=== PATIENT | female | born 1980 | race Caucasian/White ===

== ENCOUNTER 2018-04-26 18:07 | Inpatient (IN) | payer BC ==
[2018-04-26] MEDS ORDERED: Penicillin G Potassium 5 MILL.UNITS VIAL ONE (18:41)
[2018-04-26] MEDS ORDERED: Ondansetron PF 4 MG/2 ML Vial IVP PRN (18:46)
[2018-04-26] MEDS ORDERED: Misoprostol 200 MCG TAB PR PRN (18:46)
[2018-04-26] MEDS ORDERED: Lidocaine 1% (PF) 30 ML VIAL SC PRN (18:46)
[2018-04-26] MEDS ORDERED: Carboprost 250 MCG/ML AMP IM PRN (18:46)
[2018-04-26] MEDS ORDERED: Acetaminophen 500 MG TAB PO PRN (18:46)
[2018-04-26] MEDS ORDERED: Promethazine HCl 25 MG/ML VIAL IM PRN (18:46)
[2018-04-26] MEDS ORDERED: HYDROcodone/Acetaminophen 5/325 mg Tablet PO PRN ×2 (18:46→22:44)
[2018-04-26] MEDS ORDERED: Methylergonovine 0.2 MG/ML VIAL IM PRN (18:46)
[2018-04-26] MEDS ORDERED: NS / Oxytocin 40 units/1000ml 1,000 ML IV PRN (18:46)
[2018-04-26] MEDS ORDERED: Penicillin G 2.5 MILL.units 2.5 MILL.UNITS in Premix Bag 1 BAG IVPB SCH (19:00)
[2018-04-26] MEDS ORDERED: Penicillin G Potassium 5 MILL.UNITS in Sodium Chloride 0.9% 100 ML IVPB SCH (19:00)
[2018-04-26 19:04] VITALS: BMI 24.7
[2018-04-26 19:14] LABS: Hemoglobin 12.9 g/dL (12.0-16.0); Mean Corpuscular HGB CONC 30.7 g/dL (32.0-36.0); Mean Corpuscular Hemoglobin 28.5 pg (27.0-31.0); Mean Corpuscular Volume 93.1 fL (78.0-98.0); Mean Platelet Volume 9.6 fL (7.4-10.4); Platelet Count 208 thou/uL (130-400); Red Blood Cell (RBC) Count 4.54 mill/uL (4.20-5.40); White Blood Cell (WBC) Count 12.5 thou/uL (4.8-10.8)
[2018-04-26 19:55] LABS: HBSAg Index 0.31 S/CO (0-0.99); Hep B Surf Ag Non-Reactive S/CO (NonReactive); Syphilis Antibody Nonreactive (Nonreactive); Syphilis Antibody Index 0.06 S/CO (<1.00 Non-Reactive)
[2018-04-26 20:42] LABS: Actual Bicarbonate (HCO3a) 26.1 mEq/L (22-28); Base Excess (BEa) -5.2 mEq/L (-2.0 to +3.0)
[2018-04-26 20:46] LABS: Actual Bicarbonate (HCO3v) 26 mEq/L (22-28); Base Excess -3.8 mEq/L (-2.0 to +3.0)
[2018-04-26] MEDS ORDERED: Bisacodyl 10 MG SUPP PR PRN (22:44)
[2018-04-26] MEDS ORDERED: NS / Oxytocin 40 units/1000ml 1,000 ML IV SCH (22:44)
[2018-04-26] MEDS ORDERED: Milk Of Magnesia 30 ML UDCUP PO PRN (22:44)
[2018-04-26] MEDS ORDERED: Preparation H Ointment 28 GM TUBE PR PRN (22:44)
[2018-04-26] MEDS ORDERED: Benzocaine/Menthol 20-0.5% 60 ML CAN TOP PRN (22:44)
[2018-04-27] MEDS ORDERED: Acetaminophen 325 MG TAB PO PRN (01:41)
[2018-04-27] MEDS: Docusate Calcium (SURFAK) 240 MG CAP PO SCH (08:27)
[2018-04-27] MEDS: Ferrous Sulfate 325 MG TAB PO SCH ×2 (08:29→18:12)
[2018-04-27] MEDS ORDERED: Adacel (T-DAP) 0.5 ML SYRINGE IM ONE (09:00)
--- NOTE | 2018-04-27 10:54 | PDOC.PP ---
Post Progress Note Post Day #: 1 Subjective: DOign well. OK, baby is sleepy. Lochia normal. PO intake tolerated: yes Flatus: yes Ambulation: yes Vital Signs (12 hours) Temp Pulse Resp BP BP Pulse Ox 04/27/18 07:36 96 04/27/18 07:29 97.9 F 59 L 16 131/77 96 04/27/18 05:22 98.2 F 64 20 121/64 04/27/18 01:43 97.9 F 61 16 133/60 04/26/18 23:10 98.3 F 60 18 99 04/26/18 23:00 98.3 F 60 18 129/59 L 99 Weight Weight 135 lb - Physical Examination General: NAD Cardiovascular: no m/r/g, RRR Respiratory: clear to auscultation bilaterally, non-labored breathing Abdominal: + bowel sounds, lochia, no distention, appropriately TTP Result Diagrams: 04/26/18 19:00 Additional Labs: Post Labs Blood Type O POSITIVE 04/26/18 19:00 Hep Bs Antigen Non-Reactive S/CO (NonReactive) 04/26/18 19:00 (1) Vaginal delivery Code(s): O80 - ENCOUNTER FOR FULL-TERM UNCOMPLICATED DELIVERY Status: Acute - Assessment/Plan Routine PP care Plan to D/C tomorrow
[2018-04-28 07:53] VITALS: BP 128/87; TEMP 97.7
[2018-04-28] MEDS: Ferrous Sulfate 325 MG TAB PO SCH (08:58)
[2018-04-28] MEDS: Docusate Calcium (SURFAK) 240 MG CAP PO SCH ×2 (08:58→08:59)
--- NOTE | 2018-04-28 09:07 | PDOC.PP ---
Post Progress Note Post Day #: 2 Subjective: Doing well. well. Ready to go home. PO intake tolerated: yes Flatus: yes Ambulation: yes Vital Signs (12 hours) Temp Pulse Resp BP Pulse Ox 04/28/18 07:52 97.7 F 70 20 128/87 99 Weight Weight 135 lb - Physical Examination General: NAD Cardiovascular: no m/r/g, RRR Respiratory: clear to auscultation bilaterally, non-labored breathing Abdominal: + bowel sounds, lochia, no distention, appropriately TTP Result Diagrams: 04/26/18 19:00 Additional Labs: Post Labs Blood Type O POSITIVE 04/26/18 19:00 Hep Bs Antigen Non-Reactive S/CO (NonReactive) 04/26/18 19:00 (1) Vaginal delivery Code(s): O80 - ENCOUNTER FOR FULL-TERM UNCOMPLICATED DELIVERY Status: Acute - Assessment/Plan Routine PP care Recommended sitz baths, witch supriya, prep-H for hemorrhoids D/C home F/U in 6 weeks.
--- NOTE | 2018-04-28 09:44 | OP ---
DATE OF PROCEDURE: 04/26/2018 PREOPERATIVE DIAGNOSIS: Term intrauterine complicated by bradycardia. POSTOPERATIVE DIAGNOSIS: Term intrauterine complicated by bradycardia. PROCEDURE PERFORMED: Vacuum assisted vaginal delivery. SURGEON: Shannon Swanson M.D. ANESTHESIA: None. ESTIMATED BLOOD LOSS: 200 mL. BRIEF DELIVERY SUMMARY: This is a 37-year-old G4, now P4, who presented in active labor. She progressed well and quickly to complete and pushing. As she became complete, the baby developed bradycardia into the 70s. This was maintained for several minutes as pushing was initiated. Due to the sustained bradycardia, the decision was made to proceed with vacuum assisted delivery in order to expedite delivery. The vacuum was placed when the vertex was at +2 station. Head was OA. Care was taken to exclude maternal tissues from the vacuum and suction was taken into the yellow zone with the next contraction. Downward traction was applied with advancement of the vertex. During this pull, suction was lost, although it was not a true pop-off. The vacuum was removed and replaced. At this point, the vertex was at +3 station. The vacuum was taken into the green zone and with the second contraction downward traction was applied with affective delivery of the vertex. The vacuum was promptly removed. Shoulders and body quickly and easily followed. There was no nuchal cord. Upon delivery, the baby had poor tone and little respiratory effort. Therefore, the umbilical cord was doubly clamped and cut quickly and the baby was taken to the waiting nurse. He responded well to adjust stimulation and suction. Apgars were 7 at one minute and 9 at five minutes. Cord blood and cord gases were collected and sent for analysis. Placenta delivered spontaneously and intact with a three vessel umbilical cord. The uterine fundus was firm following evacuation of the placenta and bleeding was minimal. There was a midline perineal abrasion, but no lacerations. Mom and baby were left with the nurse in excellent condition attempting to breastfeed. Job ID: [id number]
== END 2018-04-28 09:53 | disposition home or self-care (01) | DRG 806 ==
LOC: L&D/OP 18:07 → L&D-LIB 19:27 → 3SE 23:40
PROVIDERS: ADMIT Family Medicine; ATTEND Family Medicine
PROC: 10D07Z6 Extraction of Products of Conception, Vacuum, Via Natural or Artificial Opening (ICD-10-PCS; principal; 2018-04-26)
PROC: 10907ZC Drainage of Amniotic Fluid, Therapeutic from Products of Conception, Via Natural or Artificial Opening (ICD-10-PCS; 2018-04-26)
DX: O76 Abnormality in fetal heart rate and rhythm complicating labor and delivery (principal); E27.1 Primary adrenocortical insufficiency; Z37.0 Single live birth; O99.824 Streptococcus B carrier state complicating childbirth; O99.284 Endocrine, nutritional and metabolic diseases complicating childbirth; E03.9 Hypothyroidism, unspecified; Z3A.39 39 weeks gestation of pregnancy; Z88.8 Allergy status to other drugs, medicaments and biological substances
CPT/HCPCS: 36415; 51702; 82805; 85027; 86780; 86850; 86900; 86901; 87340; 99285; J2540

== ENCOUNTER 2022-02-20 08:28 | Outpatient (CLI) | payer BC | END 2022-02-20 08:29 | disposition home or self-care (01) | LOC: RAD-FRANK 08:28 | PROVIDERS: ATTEND Nurse Practitioner Family | DX: M79.644 Pain in right finger(s) (principal) ==